=== PATIENT | female | born 1955 | race Caucasian/White ===

== ENCOUNTER 2018-01-12 08:31 | Observation (INO) ==
[2018-01-12 08:46] LABS: Baso % (Auto) 0.8 % (0.0-2.0); Eos # (Auto) 0.2 th/mm3 (0.0-0.4); Eos % (Auto) 3.6 % (0.0-4.0); Hematocrit 45.5 % (35.0-46.0); Hemoglobin 15.5 gm/dL (11.6-15.3); Lymph # (Auto) 1.6 th/mm3 (1.0-4.8); Mean Corpuscular Volume 91.3 fL (80.0-100.0); Mean Platelet Volume 8.8 fL (7.0-11.0); Mono # (Auto) 0.5 th/mm3 (0.0-0.9); Mono % (Auto) 7.8 % (0.0-8.0); Neut # (Auto) 3.8 th/mm3 (1.8-7.7); Neut % (Auto) 61.8 % (16.0-70.0); Platelet Count 262 th/mm3 (150-450); Red Blood Count 4.99 mil/mm3 (4.00-5.30); Red Cell Distribution Width 13.9 % (11.6-17.2); White Blood Count 6.1 th/mm3 (4.0-11.0)
--- NOTE | 2018-01-12 08:50 | ED ---
HPI General Chief complaint: Stroke Alert Stated complaint: Evac/ Stroke allert Time Seen by Provider: 01/12/18 08:50 Source: EMS Mode of arrival: EMS Limitations: no limitations History of Present Illness HPI narrative: 62yo F with PMH of anxiety, stroke was brought in by [facility] as stroke alert. As per [facility], pt had right facial droop and slurred speech less than an hour ago. When they arrived, the facial droop and slurred speech had resolved. However, they felt that she may have some aphasia and difficulty saying her words. They could not tell if it was anxiety or aphasia so called the stroke alert. On arrival, NIH stroke scale is 0. Pt is crying and appears to be very anxious. Related Data Home Medications Medication Instructions Recorded Confirmed alprazolam [Xanax] 0.5 mg PO BID PRN 01/12/18 01/12/18 aspirin [Aspir-81] 81 mg PO DAILY 01/12/18 01/12/18 atorvastatin [Lipitor] 0 mg PO DAILY 01/12/18 01/12/18 escitalopram oxalate [Lexapro] 20 mg PO DAILY 01/12/18 01/12/18 gabapentin 100 mg PO DAILY 01/12/18 01/12/18 liraglutide [Victoza 2-Micheal] 0.6 mg SUBCUT DAILY 01/12/18 01/12/18 lorazepam 1 mg PO BID PRN 01/12/18 01/12/18 meloxicam 15 mg PO DAILY 01/12/18 01/12/18 temazepam [Restoril] 0 mg PO HS 01/12/18 01/12/18 Allergies Allergy/AdvReac Type Severity Reaction Status Date / Time penicillin G Allergy Severe Hives Verified 01/12/18 08:42 MRI PRECAUTION AdvReac Unknown metal Uncoded 01/12/18 08:42 implants Review of Systems ROS: all other systems reviewed are negative [facility] Social History Social History Substance History: No History of Abuse Second Hand Smoke Exposure: No Smoking Status: Never smoker How Often Do You Have a Drink Containing Alcohol: Monthly or less Recent Travel in [facility] within the Last 8 Weeks: No Recent Out of Country Travel within the Last 8 Weeks: No Exam Narrative Exam Narrative: GENERAL: 62yo F in mild distress, crying. SKIN: Focused skin assessment warm/dry. HEAD: Atraumatic. Normocephalic. EYES: Pupils equal and round. No scleral icterus. No injection or drainage. ENT: No nasal bleeding or discharge. Mucous membranes pink and moist. NECK: Trachea midline. No JVD. CARDIOVASCULAR: Regular rate and rhythm. No murmur appreciated. RESPIRATORY: No accessory muscle use. Clear to auscultation. Breath sounds equal bilaterally. GASTROINTESTINAL: Abdomen soft, non-tender, nondistended. MUSCULOSKELETAL: No obvious deformities. No clubbing. No cyanosis. No edema. NEUROLOGICAL: AAOX3. NIH stroke scale 0. No obvious cranial nerve deficits. Motor grossly within normal limits in all extremities. Sensation intact. Normal speech. Course Initial Documented Vital Signs Temperature 98.5 F 01/12/18 08:35 Pulse Rate 96 H 01/12/18 08:35 Respiratory Rate 18 01/12/18 08:35 Blood Pressure 139/75 01/12/18 08:35 Pulse Oximetry 98 01/12/18 08:35 Last Documented Vital Signs Temperature 96.5 F L 01/12/18 12:00 Pulse Rate 86 01/12/18 12:00 Respiratory Rate 18 01/12/18 12:00 Blood Pressure 128/78 01/12/18 12:00 Pulse Oximetry 93 L 01/12/18 12:00 Critical Care Time Critical Care Time: Yes Total Critical Care Time: 40 Attestation: Aggregate critical care time was 40 minutes. Time to perform other separately billable procedures was not included in the critical care time. My time did not include minutes spent treating any other patients simultaneously or on activities that did not directly contribute to the patient's treatment. The services I provided to this patient were to treat and/or prevent clinically significant deterioration that could result in: cardiovascular collapse or . I provided critical care services requiring my management, as noted below: Chart data review, documentation time, medication orders and management, vital sign assessments/reviewing monitor data, ordering and reviewing lab tests, ordering and interpreting/reviewing x-rays and diagnostic studies, care of the patient and discussion of the patient with the admitting physicians. NIH Stroke Scale NIH Stroke Scale Level of Consciousness: 0-Alert Orientation Questions: 0-Answers both correct Responds to Commands: 0-Both tasks correct Gaze Eye Movement: 0-Horizontal movement WNL Visual Pete: 0-No visual field defect Facial Movement: 0-Normal Motor Functions Arm LEFT: 0-No drift Motor Functions Arm RIGHT: 0-No drift Motor Functions Leg LEFT: 0-No drift Motor Functions Leg RIGHT: 0-No drift Limb Ataxia: 0-No ataxia Sensory Loss: 0-No sensory loss Best Language: 0-Normal Articulation: 0-Normal Extinction or Inattention Sensory: 0-Absent Total: 0 Medical Decision Making MDM Narrative Medical decision making narrative: 62yo F was brought in as stroke alert. Pt had right facial droop and slurred speech that had resolved. [facility] was concern about possible aphasia or anxiety as she has some difficult stating some words while crying. Given the questionable aphasia, CTA head and neck ordered in addition to CT brain. Pt is also on blood thinner but cannot tell me what blood thinner. Discussed with Dr. Palma who is neurologist documentation nurse for stroke alert at [place] and he said she is not a TPA candidate at this time and that he will do exam through teleneuro. Labs reviewed, no leukocytosis. H/H 15.5/ 45.5. Troponin negative. Glucose 105. BMP unremarkable. CT brain negative. CTA brain negative. CTA neck showed no carotid stenosis or occlusion. Dr. Palma evaluated the patient through teleneuro and agreed that all symptoms has resolved. Recommend admitting for observation for TIA and ordering echocardiogram and lipid panel. Will place consult for him and admit pt to hospitalist. Recommend aspirin and plavix. The blood thinner pt was on is actually plavix but she has not taken it for 2 weeks. Pt cannot have MRI due to ear implants. Discussed with Dr. No and accepted to his service. Medical Screen Exam Complete: Yes Emergency Medical Condition: Yes Differential Diagnosis Differential Diagnosis: Panic attack vs. TIA Lab Data Result diagrams: 01/12/18 08:35 01/12/18 08:35 Lab Results 01/12/18 01/12/18 01/12/18 Range/Units 05:43 08:35 08:35 CBC w Diff Auto diff final WBC 6.1 (4.0-11.0) th/mm3 RBC 4.99 (4.00-5.30) mil/mm3 Hgb 15.5 H (11.6-15.3) gm/dL Hct 45.5 (35.0-46.0) % MCV 91.3 (80.0-100.0) fL MCH 31.0 (27.0-34.0) pg MCHC 34.0 (32.0-36.0) % RDW 13.9 (11.6-17.2) % Plt Count 262 (150-450) th/mm3 MPV 8.8 (7.0-11.0) fL Neut % (Auto) 61.8 (16.0-70.0) % Lymph % (Auto) 26.0 (9.0-44.0) % Saunders % (Auto) 7.8 (0.0-8.0) % Eos % (Auto) 3.6 (0.0-4.0) % Baso % (Auto) 0.8 (0.0-2.0) % Neut # (Auto) 3.8 (1.8-7.7) th/mm3 Lymph # (Auto) 1.6 (1.0-4.8) th/mm3 Saunders # (Auto) 0.5 (0.0-0.9) th/mm3 Eos # (Auto) 0.2 (0.0-0.4) th/mm3 Baso # (Auto) 0.0 (0.0-0.2) th/mm3 WBC Differential . Differential Comment . PT 10.4 (9.8-11.6) sec INR 1.0 Ratio APTT 26.6 (23.4-31.7) sec Sodium (136-145) meq/L Potassium (3.5-5.1) meq/L Chloride (98-107) meq/L Carbon Dioxide (21.0-32.0) meq/L Anion Gap (5-15) meq/L BUN (7-18) mg/dL Creatinine (0.50-1.00) mg/dL Estimated GFR (>89) mL/min POC Glucose (68-110) mg/dl Random Glucose (74-106) mg/dL Calcium (8.5-10.1) mg/dL Troponin I (0.02-0.05) ng/mL Triglycerides 82 (42-150) mg/dL Cholesterol 113 L (120-200) mg/dL LDL Cholesterol, Calc 49 (0-99) mg/dL HDL Cholesterol 47.8 (40.0-60.0) mg/dL Cholesterol/HDL Ratio 2.36 Ratio 01/12/18 01/12/18 01/12/18 Range/Units 08:35 09:01 11:47 CBC w Diff WBC (4.0-11.0) th/mm3 RBC (4.00-5.30) mil/mm3 Hgb (11.6-15.3) gm/dL Hct (35.0-46.0) % MCV (80.0-100.0) fL MCH (27.0-34.0) pg MCHC (32.0-36.0) % RDW (11.6-17.2) % Plt Count (150-450) th/mm3 MPV (7.0-11.0) fL Neut % (Auto) (16.0-70.0) % Lymph % (Auto) (9.0-44.0) % Saunders % (Auto) (0.0-8.0) % Eos % (Auto) (0.0-4.0) % Baso % (Auto) (0.0-2.0) % Neut # (Auto) (1.8-7.7) th/mm3 Lymph # (Auto) (1.0-4.8) th/mm3 Saunders # (Auto) (0.0-0.9) th/mm3 Eos # (Auto) (0.0-0.4) th/mm3 Baso # (Auto) (0.0-0.2) th/mm3 WBC Differential Differential Comment PT (9.8-11.6) sec INR Ratio APTT (23.4-31.7) sec Sodium 139 (136-145) meq/L Potassium 3.9 (3.5-5.1) meq/L Chloride 103 (98-107) meq/L Carbon Dioxide 27.7 (21.0-32.0) meq/L Anion Gap 8 (5-15) meq/L BUN 18 (7-18) mg/dL Creatinine 0.64 (0.50-1.00) mg/dL Estimated GFR Greater than 89 (>89) mL/min POC Glucose 105 92 (68-110) mg/dl Random Glucose 97 (74-106) mg/dL Calcium 8.8 (8.5-10.1) mg/dL Troponin I Less than 0.02 L (0.02-0.05) ng/mL Triglycerides (42-150) mg/dL Cholesterol (120-200) mg/dL LDL Cholesterol, Calc (0-99) mg/dL HDL Cholesterol (40.0-60.0) mg/dL Cholesterol/HDL Ratio Ratio Imaging Data Radiologist's impression: Head CT 01/12/18 08:35 CONCLUSION: 1. Negative CT Head non contrast. Report was called by [Jeffrey Magana MD ] Head CTA 01/12/18 08:35 CONCLUSION: 1. Negative CT angiogram of the brain. Report was called by [Jeffrey Magana M.D. to Dr. Vargas ] Neck CTA 01/12/18 08:35 CONCLUSION: 1. No evidence of carotid stenosis or occlusion. 2. 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 Dominant left vertebral artery which is widely patent. ECG Data EKG Prior to Arrival: No Attestation: I personally reviewed and interpreted this ECG as follows: Interpretation: NSR 94bpm. LAD. [place] interval 152ms. No signficant ST elevation or depression. Discharge Plan Discharge Disposition Patient Disposition: 30 Still Patient Discharge Details Diagnosis: Brain TIA Physicians Team ED Provider: Radha Vargas Primary Care Provider: Jamil Awad Attending Provider: Cheng Bourne Other Providers: Cortes Forbes Status ED Status: Left Department Discharge Information Discharge Date/Time: 01/12/18 10:24
[2018-01-12 08:53] LABS: Chloride 103 meq/L (98-107); Potassium 3.9 meq/L (3.5-5.1); Sodium 139 meq/L (136-145)
[2018-01-12 08:55] LABS: Calcium 8.8 mg/dL (8.5-10.1)
[2018-01-12 08:56] LABS: Anion Gap 8 meq/L (5-15); Blood Urea Nitrogen 18 mg/dL (7-18); Carbon Dioxide 27.7 meq/L (21.0-32.0); Glucose,Random 97 mg/dL (74-106)
[2018-01-12 08:57] LABS: Activated Partial Thrombo Time 26.6 sec (23.4-31.7); Prothrombin Time 10.4 sec (9.8-11.6)
--- NOTE | 2018-01-12 08:58 | CT ---
EXAM DATE: 01/12/2018 8:46 AM EST AGE/SEX: 62 years / Female INDICATIONS: Stroke alert. Slurred speech and right facial droop this morning. CLINICAL DATA: This is the patient's initial encounter. Patient reports that signs and symptoms have been present for 1 day and indicates a pain score of 0/10. MEDICAL/SURGICAL HISTORY: None. None. RADIATION DOSE: 58.51 CTDI (mGy) COMPARISON: [facility], CTA HEAD, 12/10/2017. . TECHNIQUE: CT of the head without contrast. Using automated exposure control and adjustment of the mA and/or kV according to patient size, radiation dose was kept as low as reasonably achievable to ob tain optimal diagnostic quality images. DICOM format image data is available electronically for revi ew and comparison. FINDINGS: Cerebrum: The ventricles are normal for age. No evidence of midline shift, mass lesion, hemorrhage or acute infarction. No extraaxial fluid collections are seen. Posterior Fossa: The cerebellum and brainstem are intact. The 4th ventricle is midline. The cerebe llopontine angle is unremarkable. Extracranial: The visualized portion of the orbits is intact. Skull: The calvaria is intact. No evidence of skull fracture. CONCLUSION: 1. Negative CT Head non contrast. Report was called by [Jeffrey Magana MD ] Electronically signed by: Perry Magana MD 01/12/2018 8:57 AM EST
[2018-01-12 08:59] LABS: Glomerular Filtration Rate Greater Than 89 mL/min (>89)
--- NOTE | 2018-01-12 09:17 | CT ---
EXAM DATE: 01/12/2018 9:07 AM EST AGE/SEX: 62 years / Female INDICATIONS: Stroke alert. Slurred speech and right facial droop this morning. CLINICAL DATA: This is the patient's initial encounter. Patient reports that signs and symptoms have been present for 1 day and indicates a pain score of 0/10. MEDICAL/SURGICAL HISTORY: None. . Hearing implants. RADIATION DOSE: 43.06 CTDI (mGy) ; Combined studies COMPARISON: [facility], CT HEAD W/O CONTRAST, 01/12/2018. . TECHNIQUE: Volumetric scanning was performed using a multi-row detector CT scanner during bolus infu philipp of 85 ml Visipaque 320 (iodixanol) nonionic water-soluble contrast as a cumulative dose for mul tiple exams. The data was post processed with a variety of visualization algorithms including full volume maximum intensity projection, multi-planar sliding thin slab reformation, curved planar reform ation, and surface rendering techniques. Using automated exposure control and adjustment of the mA a nd/or kV according to patient size, radiation dose was kept as low as reasonably achievable to obtain optimal diagnostic quality images. DICOM format image data is available electronically for review a nd comparison. FINDINGS: The distal internal carotid arteries are widely patent. The examination demonstrates a hypoplastic A1 segment on the right. The anterior and middle cerebral circulation is otherwise within normal limits . The right vertebral artery is diminutive in size. The left vertebral is a sizable vessel and is widel y patent. The basilar is widely patent. The posterior cerebral circulation is widely patent bilateral ly. CONCLUSION: 1. Negative CT angiogram of the brain. Report was called by [Jeffrey Magana M.D. to Dr. Vargas ] Electronically signed by: Perry Magana MD 01/12/2018 9:16 AM EST
--- NOTE | 2018-01-12 09:38 | CT ---
EXAM DATE: 01/12/2018 9:24 AM EST AGE/SEX: 62 years / Female INDICATIONS: Stroke alert. Slurred speech and right facial droop this morning. CLINICAL DATA: This is the patient's initial encounter. Patient reports that signs and symptoms have been present for 1 day and indicates a pain score of 0/10. MEDICAL/SURGICAL HISTORY: None. . Hearing implants. RADIATION DOSE: 43.06 CTDI (mGy) ; Combined studies COMPARISON: [facility], CTA CAROTID ARTERIES, 12/10/2017. [facility], CT CERVICAL SPINE W/O CONTRAST, 3. . TECHNIQUE: Volumetric scanning was performed using a multirow detector CT scanner during bolus infus ion of 85 ml Visipaque 320 (iodixanol) nonionic water-soluble contrast as a cumulative dose for mult iple exams. The data was postprocessed with a variety of visualization algorithms including full-vo lume maximum intensity projection, multiplanar sliding thin-slab reformation, curved-planar reformati on, and surface-rendering techniques. Using automated exposure control and adjustment of the mA and/ or kV according to patient size, radiation dose was kept as low as reasonably achievable to obtain op timal diagnostic quality images. DICOM format image data is available electronically for review and comparison. FINDINGS: Aortic Arch: There is a three-vessel origin of the great vessels from the aorta. No evidence of ost ial narrowing Right Carotid: The common carotid artery is intact. The carotid bulb has a normal configuration wit hout ulceration or narrowing. The internal carotid artery lumen is smooth without stenosis. The ext ernal carotid artery is intact. Left Carotid: The common carotid artery is intact. The carotid bulb has a normal configuration with out ulceration or narrowing. The internal carotid artery lumen is smooth without stenosis. The exte rnal carotid artery is intact. Vertebrals: There is a dominant left vertebral artery. There is a very small caliber right vertebral artery appears to be occluded distally and again reconstitutes near the vertebrobasilar junction. Percent stenosis is calculated using the diameter of the stenotic region over the diameter of the nor mal distal internal carotid artery. CONCLUSION: 1. No evidence of carotid stenosis or occlusion. 2. 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 Dominant left vertebral artery which is widely patent. Electronically signed by: Mane Oliver MD 01/12/2018 9:36 AM EST
--- NOTE | 2018-01-12 09:53 | MB ---
cc: Jamil Palma MD, PhD DATE: 01/12/2018 TELE-NEUROLOGY CONSULTATION HISTORY OF PRESENT ILLNESS: This is a 62-year-old female who came to the ER in [place] as a stroke alert. About an hour prior to admission, she developed sudden onset of right facial droop with slurring of her speech. Upon arrival to the ER, the facial droop had resolved. She was having some difficulty saying words, however, but was very anxious and it was felt that this may have been related to anxiety. The NIH stroke scale was 0. PAST MEDICAL HISTORY: Remarkable for TIA in the past. The patient has had a stroke in the past and did receive TPA in the past. MEDICATIONS: She was on Plavix, but stopped this a couple of weeks ago. NEUROLOGIC EXAMINATION: This was conducted through the tele-neurology network. The patient was clearly visualized and understood. On higher cortical function testing, she is alert. She can tell me her name. She can tell me the month. She can repeat simple phrases well with no sign of aphasia. She comprehends commands normally. There is no visual spatial neglect. CRANIAL NERVES: The pupils are equal. The extraocular movements normal. Facial symmetry is normal. She has no facial droop at the present time. Facial sensation is normal. MOTOR EXAM: She has no drift. She is able to hold both upper extremities up for greater than 10 seconds with absolutely no drift. She is able to hold both lower extremities up as well for greater than 10 seconds. Sensory exam intact. She denies intermittent focal numbness. VITAL SIGNS: Blood pressure 139/75, pulse is 96 and regular. She is in normal sinus rhythm, respiratory rate is 18, temperature 98.5 degrees Fahrenheit. IMAGING STUDIES: CT of the brain is normal. CT angiogram of the brain is normal. LABS: The white count is 6100, hemoglobin 15.5, hematocrit 45.5%, platelet count 262,000. PT 10.4, INR 1, APTT 26.6. Sodium is 139, potassium 3.9, chloride 103, CO2 of 27.7, the BUN is 18, creatinine 0.64, GFR greater than 89, glucose 105, calcium 8.8. IMPRESSION: Probable transient ischemic attack versus anxiety. She has no neurological deficit at the present time and her NIH stroke scale is a 0. For this reason, she is not a candidate for IV TPA. CT angiogram of the brain is normal with no sign of large vessel occlusion and therefore is not a candidate for interventional radiology. PLAN: Would recommend admission for observation for TIA. Would resume her Plavix 75 mg daily along with aspirin 325 mg daily. Evaluate further with carotid ultrasound as well as an echocardiogram and lipid panel. Thank you for asking me to see this patient in consultation. Jamil Palma MD, PhD RENEE/nathalia , 09:27 AM , 09:36 AM
[2018-01-12] MEDS ORDERED: ALPRAZolam 0.5 MG Tablet PO PRN (11:12)
[2018-01-12] MEDS ORDERED: Acetaminophen 325 MG Tablet PO PRN (11:29)
[2018-01-12] MEDS ORDERED: Bisacodyl 10 MG Supp RECTAL PRN (11:29)
--- NOTE | 2018-01-12 11:45 | P.HP ---
History of Present Illness Service: Merged with [facility] Primary Care Physician: Jamil Awad MD Chief Complaint: Episode of slurred speech and aphasia History of Present Illness: 62yo F with PMH of anxiety, stroke was brought in by [facility] as stroke alert. As per [facility], pt had right facial droop and slurred speech less than an hour ago. When they arrived, the facial droop and slurred speech had resolved. However, they felt that she may have some aphasia and difficulty saying her words. They could not tell if it was anxiety or aphasia so called the stroke alert. On arrival, NIH stroke scale is 0. Pt is crying and appears to be very anxious. Neurology was notified and they saw patient via tele service and wanted patient admitted for observation start on plavix and asa 325mg obtain 2d echo carotid . Patient had hx CVA and has been followed by neurology and just completed carotid testing and CT scanning and was d/sarina off plavix 2 weeks ago. Patient with hx dm. Related Data - Diagnosis (1) Brain TIA (2) Diabetes Review of Systems All other systems reviewed negative except as stated in HPI [facility] - History History Provided By: Patient - Medical History Medical History: Medical History (Last Reviewed 01/12/18 @ 11:41 by Cheng Bourne MD) H/O: hysterectomy History of stroke - Surgical History Surgical History: Surgical History (Last Reviewed 01/12/18 @ 11:41 by Cheng Bourne MD) H/O cervical spine surgery Hx of cholecystectomy Hx of gastric bypass - Tobacco History Second Hand Smoke Exposure: No Smoking Status: Never smoker - Alcohol History How Often Do You Have a Drink Containing Alcohol: Monthly or less - Substance Use History Substance History: No History of Abuse - Travel History Recent Travel in the [facility] Within the Last 8 Weeks: No Recent Travel Out of the Country Within the Last 8 Weeks: No - Immunization History Tetanus Immunization: Unsure Medications and Allergies Active Medications: Active Medications Acetaminophen (Tylenol) 650 mg PO Q4H PRN PRN Reason: Temp > 100.4 Al Hydroxide/Mg Hydroxide (Milk Of Magnesia Liq) 30 ml PO Q12H PRN PRN Reason: Mild Constipation Alprazolam (Xanax) 0.5 mg PO BID PRN PRN Reason: Anxiety Aspirin (Aspirin) 325 mg PO DAILY DEEPA Atorvastatin Calcium (Lipitor) 20 mg PO DAILY DEEPA Bisacodyl (Dulcolax Supp) 10 mg RECTAL DAILY PRN PRN Reason: SEVERE CONSITIPATION Clopidogrel Bisulfate (Plavix) 75 mg PO DAILY [facility] Escitalopram Oxalate (Lexapro) 20 mg PO DAILY [facility] Gabapentin (Neurontin) 100 mg PO DAILY [facility] Lactulose (Lactulose Liq) 30 ml PO DAILY PRN PRN Reason: SEVERE CONSITIPATION Non-Formulary Medication (Liraglutide [Victoza 2-Micheal]) 0.6 mg SQ DAILY [facility] Non-Formulary Medication (Temazepam [Restoril]) 30 mg PO HS [facility] Ondansetron HCl (Zofran Inj) 4 mg IV.PUSH Q6H PRN PRN Reason: NAUSEA OR VOMITING Senna/Docusate Sodium (Ana-Colace) 1 tab PO BID [facility] Sennosides (Senokot) 17.2 mg PO Q12H PRN PRN Reason: Moderate Constipation Sodium Chloride (Ns Flush) 2 ml IV.FLUSH PRN PRN PRN Reason: FLUSH AFTER USING IV ACCESS Allergies Allergy/AdvReac Type Severity Reaction Status Date / Time penicillin G Allergy Severe Hives Verified 01/12/18 08:42 MRI PRECAUTION AdvReac Unknown metal Uncoded 01/12/18 08:42 implants Home Medications Medication Instructions Recorded Confirmed Type alprazolam [Xanax] 0.5 mg PO BID PRN 01/12/18 01/12/18 History aspirin [Aspir-81] 81 mg PO DAILY 01/12/18 01/12/18 History atorvastatin [Lipitor] 0 mg PO DAILY 01/12/18 01/12/18 History escitalopram oxalate [Lexapro] 20 mg PO DAILY 01/12/18 01/12/18 History gabapentin 100 mg PO DAILY 01/12/18 01/12/18 History liraglutide [Victoza 2-Micheal] 0.6 mg SUBCUT DAILY 01/12/18 01/12/18 History lorazepam 1 mg PO BID PRN 01/12/18 01/12/18 History meloxicam 15 mg PO DAILY 01/12/18 01/12/18 History temazepam [Restoril] 0 mg PO HS 01/12/18 01/12/18 History Exam Vital signs: Vital Signs 01/12/18 08:35 01/12/18 09:24 01/12/18 09:57 Temperature 98.5 F Pulse Rate 96 H 95 H 87 Respiratory Rate 18 16 Blood Pressure 139/75 132/73 Pulse Oximetry 98 98 98 Intake & Output 01/11/18 01/12/18 01/12/18 18:59 06:59 18:59 Weight 104.8 kg Other: Weight On Admission 104.8 kg Narrative: GENERAL: SKIN: Warm and dry. HEAD: Atraumatic. Normocephalic. EYES: Pupils equal and round. No scleral icterus. No injection or drainage. ENT: No nasal bleeding or discharge. Mucous membranes pink and moist. NECK: Trachea midline. No JVD. CARDIOVASCULAR: Regular rate and rhythm. RESPIRATORY: No accessory muscle use. Clear to auscultation. Breath sounds equal bilaterally. GASTROINTESTINAL: Abdomen soft, non-tender, nondistended. Hepatic and splenic margins not palpable. MUSCULOSKELETAL: Extremities without clubbing, cyanosis, or edema. No obvious deformities. NEUROLOGICAL: Awake and alert. No obvious cranial nerve deficits. Motor grossly within normal limits. Five out of 5 muscle strength in the arms and legs. Normal speech. PSYCHIATRIC: Appropriate mood and affect; insight and judgment normal. Results - Labs CBC & Chem 7: 01/12/18 08:35 01/12/18 08:35 Labs: Laboratory Results - last 24 hr 01/12/18 01/12/18 01/12/18 08:35 08:35 08:35 CBC w Diff Auto diff final WBC 6.1 RBC 4.99 Hgb 15.5 H Hct 45.5 MCV 91.3 MCH 31.0 MCHC 34.0 RDW 13.9 Plt Count 262 MPV 8.8 Neut % (Auto) 61.8 Lymph % (Auto) 26.0 [place] % (Auto) 7.8 Eos % (Auto) 3.6 Baso % (Auto) 0.8 Neut # (Auto) 3.8 Lymph # (Auto) 1.6 [place] # (Auto) 0.5 Eos # (Auto) 0.2 Baso # (Auto) 0.0 WBC Differential . Differential Comment . PT 10.4 INR 1.0 APTT 26.6 Sodium 139 Potassium 3.9 Chloride 103 Carbon Dioxide 27.7 Anion Gap 8 BUN 18 Creatinine 0.64 Estimated GFR Greater than 89 POC Glucose Random Glucose 97 Calcium 8.8 Troponin I Less than 0.02 L 01/12/18 09:01 CBC w Diff WBC RBC Hgb Hct MCV MCH MCHC RDW Plt Count MPV Neut % (Auto) Lymph % (Auto) [place] % (Auto) Eos % (Auto) Baso % (Auto) Neut # (Auto) Lymph # (Auto) [place] # (Auto) Eos # (Auto) Baso # (Auto) WBC Differential Differential Comment PT INR APTT Sodium Potassium Chloride Carbon Dioxide Anion Gap BUN Creatinine Estimated GFR POC Glucose 105 Random Glucose Calcium Troponin I - Imaging Impressions Head CT 01/12/18 08:35 CONCLUSION: 1. Negative CT Head non contrast. Report was called by [Jeffrey Magana MD ] Head CTA 01/12/18 08:35 CONCLUSION: 1. Negative CT angiogram of the brain. Report was called by [Jeffrey Magana M.D. to Dr. Vargas ] Neck CTA 01/12/18 08:35 CONCLUSION: 1. No evidence of carotid stenosis or occlusion. 2. 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 Dominant left vertebral artery which is widely patent. Caprini VTE Risk Assessment Caprini VTE Risk Assessment: Moderate/High Risk (score >= 2) Caprini Risk Assessment Model: Point Value = 1 Point Value = 2 Point Value = 3 Point Value = 5 Age 41-60 Minor surgery BMI > 25 kg/m2 Swollen legs Varicose veins or History of unexplained or recurrent spontaneous Oral contraceptives or hormone replacement Sepsis (< 1 month) Serious lung disease, including pneumonia (< 1 month) Abnormal pulmonary function Acute myocardial infarction Congestive heart failure (< 1 month) History of inflammatory bowel disease Medical patient at bed rest Age 61-74 Arthroscopic surgery Major open surgery (> 45 min) Laparoscopic surgery (> 45 min) Malignancy Confined to bed (> 72 hours) Immobilizing plaster cast Central venous access Age >= 75 History of VTE Family history of VTE Factor V Leiden Prothrombin [id number] Lupus anticoagulant Anticardiolipin antibodies Elevated serum homocysteine Heparin-induced thrombocytopenia Other congenital or acquired thrombophilia Stroke (< 1 month) Elective arthroplasty Hip, pelvis, or leg fracture Acute spinal cord injury (< 1 month) Prophylaxis Regimen: Total Risk Factor Score Risk Level Prophylaxis Regimen 0-1 Low Early ambulation 2 Moderate Order ONE of the following: *Sequential Compression Device (SCD) *Heparin 5000 units SQ BID 3-4 Higher Order ONE of the following medications: *Heparin 5000 units SQ TID *Enoxaparin/Lovenox 40 mg SQ daily (WT < 150 kg, CrCl > 30 mL/min) *Enoxaparin/Lovenox 30 mg SQ daily (WT < 150 kg, CrCl > 10-29 mL/min) *Enoxaparin/Lovenox 30 mg SQ BID (WT < 150 kg, CrCl > 30 mL/min) AND/OR *Sequential Compression Device (SCD) 5 or more Highest Order ONE of the following medications: *Heparin 5000 units SQ TID (Preferred with Epidurals) *Enoxaparin/Lovenox 40 mg SQ daily (WT < 150 kg, CrCl > 30 mL/min) *Enoxaparin/Lovenox 30 mg SQ daily (WT < 150 kg, CrCl > 10-29 mL/min) *Enoxaparin/Lovenox 30 mg SQ BID (WT < 150 kg, CrCl > 30 mL/min) AND *Sequential Compression Device (SCD) Assessment and Plan - Assessment (1) Brain TIA Code(s): G45.9 - Transient cerebral ischemic attack, unspecified Status: Acute Plan: admit observation 2d echo will review work up patient had as out patient restart plavix and asa (2) Diabetes Code(s): E11.9 - Type 2 diabetes mellitus without complications Status: Acute Plan: continue home medications - Plan Further plan as case develops Code Status: Full Discussed Condition With: Patient
[2018-01-12] MEDS ORDERED: Dextrose 50% in Water 50 ML Vial IV.PUSH PRN (11:46)
[2018-01-12] MEDS: Insulin NovoLOG Aspart Correctional Sugar Inj SQ SCH ×2 (12:36→17:22)
[2018-01-12 14:00] LABS: Chol/HDL Ratio 2.36 Ratio; HDL Cholesterol 47.8 mg/dL (40.0-60.0)
--- NOTE | 2018-01-12 15:37 | ECHRPT ---
Indication: CVA/TIA CONCLUSIONS The left ventricular systolic function is normal with an estimated ejection fraction in the range of 60-65%. Normal left ventricular size. Wall thickness is normal. No regional wall motion abnormalities are present. Trileaflet aortic valve. Minimal aortic valve sclerosis is present. There is trace tricuspid valve regurgitation. The estimated pulmonary arterial pressure is 25 mmHg. BP: / HR: Rhythm: Sinus MEASUREMENTS (Male / Female) Normal Values Technical Quality:Fair 2D ECHO LV Diastolic Diameter PLAX 3.6 cm 4.2 - 5.9 / 3.9 - 5.3 cm LV Systolic Diameter PLAX 2.5 cm IVS Diastolic Thickness 1.0 cm 0.6 - 1.0 / 0.6 - 0.9 cm LVPW Diastolic Thickness 1.0 cm 0.6 - 1.0 / 0.6 - 0.9 cm LV Relative Wall Thickness 0.5 LVOT Diameter 1.8 cm LA Systolic Diameter LX 3.3 cm 3.0 - 4.0 / 2.7 - 3.8 cm LV Ejection Fraction MOD 4C 60.8 % LV Ejection Fraction 4C AL 62.5 % M-MODE Aortic Root Diameter MM 2.1 cm LA Systolic Diameter MM 3.0 cm LA Ao Ratio MM 1.4 AV Cusp Separation MM 1.9 cm DOPPLER AV Peak Velocity 167.0 cm/s AV Peak Gradient 11.2 mmHg LVOT Peak Velocity 95.3 cm/s LVOT Peak Gradient 3.6 mmHg AV Area Cont Eq pk 1.5 cm MV Area PHT 3.7 cm Mitral E Point Velocity 63.2 cm/s Mitral A Point Velocity 83.9 cm/s Mitral E to A Ratio 0.8 LV E' Lateral Velocity 6.6 cm/s Mitral E to LV E' Lateral Ratio 9.5 LV E' Septal Velocity 6.7 cm/s Mitral E to LV E' Septal Ratio 9.4 TR Peak Velocity 198.0 cm/s TR Peak Gradient 15.7 mmHg Right Atrial Pressure 10.0 mmHg Pulmonary Artery Systolic Pressu 25.7 mmHg Right Ventricular Systolic Press 25.7 mmHg PV Peak Velocity 86.9 cm/s PV Peak Gradient 3.0 mmHg FINDINGS LEFT VENTRICLE The left ventricular systolic function is normal with an estimated ejection fraction in the range of 60-65%. Normal left ventricular size. Wall thickness is normal. No regional wall motion abnormalities are present. RIGHT VENTRICLE Normal right ventricular size and systolic function. LEFT ATRIUM The left atrial size is normal. RIGHT ATRIUM The right atrial size is normal. ATRIAL SEPTUM Normal atrial septal thickness without atrial level shunting by limited color doppler interrogation. AORTA The aortic root and proximal ascending aorta are normal in size on limited imaging. MITRAL VALVE Structurally normal mitral valve. No mitral valve stenosis or regurgitation. AORTIC VALVE Trileaflet aortic valve. Minimal aortic valve sclerosis is present. TRICUSPID VALVE There is trace tricuspid valve regurgitation. The estimated pulmonary arterial pressure is 25 mmHg. PULMONARY VALVE Trivial pulmonary valve regurgitation. VESSELS The inferior vena cava is normal in size. PERICARDIUM No pericardial effusion. Woody Zhong MD (Electronically Signed) Final Date:12 January 2018 15:37
--- NOTE | 2018-01-12 18:14 | ECG ---
Date Performed: 01/12/2018 Time Performed: 09:09:36 PTAGE: 62 years EKG: Sinus rhythm POSSIBLE LEFT ATRIAL ENLARGEMENT NONSPECIFIC T-WAVE ABNORMALITY BORDERLINE ECG NO PREVIOUS TRACING DOCTOR: Elizabeth Leigh Interpretating Date/Time 01/12/2018 18:10:16
[2018-01-12] MEDS: Senna/Docusate Sodium 8.6/50 MG Tablet PO SCH (20:38)
[2018-01-12] MEDS ORDERED: Temazepam 15 MG Capsule PO SCH (21:00)
[2018-01-13] MEDS: Insulin NovoLOG Aspart Correctional Sugar Inj SQ SCH ×2 (01:27→07:03)
[2018-01-13] MEDS: Senna/Docusate Sodium 8.6/50 MG Tablet PO SCH (08:30)
[2018-01-13] MEDS ORDERED: Gabapentin 100 MG Capsule PO SCH (09:00)
[2018-01-13] MEDS ORDERED: LIRAGLUTIDE 0.6 MG SQ SCH (09:00)
[2018-01-13] MEDS ORDERED: Aspirin 325 MG Tablet PO SCH (09:00)
--- NOTE | 2018-01-13 09:24 | MB ---
cc: Jamil Palma MD, PhD DATE: 01/13/2018 HISTORY OF PRESENT ILLNESS: This is a 62-year-old female who I evaluated yesterday in the ER via teleneurology as a stroke alert. Her symptoms had resolved. She had developed slurred speech and a right facial droop. This completely resolved. NIH stroke scale was 0, therefore not a TPA candidate and not an interventional candidate. She is doing well this morning with no neurological symptoms. Denies any recurrent slurred speech. Denies any recurrent weakness or facial droop. Her evaluation in the emergency room included CT brain, which was negative. She had a CT angiogram of the brain, which was also normal. She had CTA of the neck showing no significant carotid artery stenosis. She has small caliber right vertebral artery, which was occluded distally and reconstituted near the vertebrobasilar junction. Dominant left vertebral artery was seen. The patient states that she had a history of a stroke about a year ago, was evaluated in the past by Dr. Segura, including transesophageal echo,which was normal. She had a monitoring and evaluation advisor on for a month, which was negative for atrial fibrillation. She was on Plavix and aspirin therapy. She states about 2 weeks ago, she stopped the Plavix and was continuing on aspirin. NEUROLOGICAL EXAMINATION: VITAL SIGNS: Blood pressure today is 142/66, pulse 77 and regular, respirations 18, temperature 94.5 degrees. HIGHER CORTICAL FUNCTION: She is alert, oriented x 3. Her speech is within normal limits today. No dysarthria. Cranial nerves are intact. Motor exam is normal with no focal deficit. Reflexes symmetric. DIAGNOSTIC DATA: The white count is 6100, hemoglobin 15.5, hematocrit 45%, platelet count 262,000. PT 10.4, INR 1, aPTT 26.6. Sodium 139, potassium 3.9, chloride 103, CO2 of 28, BUN is 18, creatinine 0.64. GFR is greater than 89, glucose 97. Troponin less than 0.02. EKG normal sinus rhythm. She did have an echocardiogram done today. EF is 60%-65%, normal left ventricular size and function, trace tricuspid valve regurgitation, minimal aortic valve sclerosis is present with a trileaflet aortic valve. Atrial septum is normal. The aortic root is normal. Mitral valve is structurally normal with no stenosis. Aortic valve minimal sclerosis, no stenosis. Pulmonary valve, trivial valve regurgitation. Tricuspid valve, trace valve regurgitation. IMPRESSION: Transient ischemic attack, now completely resolved as noted above. She is not a TPA candidate due to resolution of symptoms. Would recommend continuing both Plavix 75 mg daily as well as aspirin 325 mg daily, but also continue statin therapy. The patient is stable at this time for discharge if okay with the primary service, continuing Plavix and aspirin. She will follow up with Dr. Del Rosario, who is her neurologist presently. Thank you for asking me to see this patient in consult. Jamil Palma MD, PhD RENEE/ingrid , 08:56 AM , 09:04 AM
[2018-01-13 10:13] VITALS: BP 117/77; PULSE 76; RESP 20; TEMP 96.5; O2SAT 95
--- NOTE | 2018-01-13 11:44 | P.DS ---
Date of admission: 01/12/18 09:46 Primary care physician: Jamil Awad MD Attending physician on discharge: Cheng Bourne Anticipated date of discharge: 01/13/18 Brief History from admission: 62yo F with PMH of anxiety, stroke was brought in by [facility] as stroke alert. As per [facility], pt had right facial droop and slurred speech less than an hour ago. When they arrived, the facial droop and slurred speech had resolved. However, they felt that she may have some aphasia and difficulty saying her words. They could not tell if it was anxiety or aphasia so called the stroke alert. On arrival, NIH stroke scale is 0. Pt is crying and appears to be very anxious. Neurology was notified and they saw patient via tele service and wanted patient admitted for observation start on plavix and asa 325mg obtain 2d echo carotid . Patient had hx CVA and has been followed by neurology and just completed carotid testing and CT scanning and was d/sarina off plavix 2 weeks ago. Patient with hx dm. Related Data Patient update on day of discharge: patient doing well to continue plavix 75 and asa 325 which she already has at home and follow up with neurology thursday DS: Diagnosis - Discharge Diagnosis (1) Brain TIA Status: Acute (2) Diabetes Status: Acute DS: Summary Hospital Course: Patient admitted with TIA symptom resolved before arriving in ER monitored overnight 2d echo unremarkable and restarted on Plavix 75 and ASA 325 and to continue home Meds. Patient already has at home plavix and asa and has follow up with neurology this Thursday - Time Spent with Patient Total time spent providing and/or coordinating discharge services: Greater than 30 minutes - Quality: Stroke Last date observed well: 01/12/18 Last time observed well: 07:00 - Quality: VTE Deep Vein Thrombosis/Pulmonary Embolism Present on Admission: No Exam Vital signs: Vital Signs 01/12/18 12:00 01/12/18 16:00 01/12/18 19:30 Temperature 96.5 F L 97.7 F Pulse Rate 86 90 Respiratory Rate 18 16 Blood Pressure 128/78 123/76 Pulse Oximetry 93 L 94 L 96 01/12/18 20:00 01/13/18 00:00 01/13/18 04:00 Temperature 96.3 F L 98.5 F 94.5 F L Pulse Rate 74 70 77 Respiratory Rate 18 18 Blood Pressure 113/71 180/66 H 142/66 H Pulse Oximetry 96 96 96 01/13/18 08:00 Temperature 96.5 F L Pulse Rate 76 Respiratory Rate 20 Blood Pressure 117/77 Pulse Oximetry 95 Intake & Output 01/12/18 01/13/18 01/13/18 18:59 06:59 18:59 Intake Total 600 / 600 90 / 90 Output Total 400 / 400 Balance 600 / 600 -310 / -310 Weight 104.8 kg 105.8 kg Intake: Oral 600 / 600 90 / 90 Output: Urine 400 / 400 Other: # Voids 4 # Bowel Movements 0 Weight On Admission 104.8 kg Narrative: GENERAL: SKIN: Warm and dry. HEAD: Normocephalic. EYES: No scleral icterus. No injection or drainage. NECK: Supple, trachea midline. No JVD or lymphadenopathy. CARDIOVASCULAR: Regular rate and rhythm without murmurs, gallops, or rubs. RESPIRATORY: Breath sounds equal bilaterally. No accessory muscle use. GASTROINTESTINAL: Abdomen soft, non-tender, nondistended. MUSCULOSKELETAL: No cyanosis, or edema. BACK: Nontender without obvious deformity. No CVA tenderness.neuro no focal findings Results Procedures completed during hospitalization: 2d echo cta brain,ct brain had implant so unable to perform MRI Labs on day of discharge: Labs from last 24 hours 01/13/18 01/12/18 01/12/18 06:40 21:22 17:20 POC Glucose 80 88 106 Triglycerides Cholesterol LDL Cholesterol, Calc HDL Cholesterol Cholesterol/HDL Ratio 01/12/18 01/12/18 11:47 05:43 POC Glucose 92 Triglycerides 82 Cholesterol 113 L LDL Cholesterol, Calc 49 HDL Cholesterol 47.8 Cholesterol/HDL Ratio 2.36 - Impressions ITS Impressions Head CT 01/12/18 08:35 CONCLUSION: 1. Negative CT Head non contrast. Report was called by [Jeffrey Magana MD ] Head CTA 01/12/18 08:35 CONCLUSION: 1. Negative CT angiogram of the brain. Report was called by [Jeffrey Magana M.D. to Dr. Vargas ] Neck CTA 01/12/18 08:35 CONCLUSION: 1. No evidence of carotid stenosis or occlusion. 2. 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 Dominant left vertebral artery which is widely patent. Discharge Plan - Discharge Disposition Patient Disposition: 01 Discharge Home - Discharge Condition Condition: Good - Discharge Order Discharge Orders: Discharge Order (Routine); Ordered 01/13/18 Ordered By: Cheng Bourne - Discharge Details Anticipated Discharge Date: 01/13/18 - Physicians Team Primary Care Provider: Jamil Awad Attending Provider: Cheng Bourne Other Providers: Cortes Forbes MD
== END 2018-01-13 13:37 | disposition home or self-care (01) ==
LOC: PHEDA 08:31 → PHED 08:31 → PH3 10:22
PROVIDERS: ADMIT Internal Medicine; ATTEND Internal Medicine
DX: Z79.82 Long term (current) use of aspirin; I63.9 Cerebral infarction, unspecified; Z90.710 Acquired absence of both cervix and uterus; Z98.84 Bariatric surgery status; R94.31 Abnormal electrocardiogram [ECG] [EKG]; Z79.02 Long term (current) use of antithrombotics/antiplatelets; Z90.49 Acquired absence of other specified parts of digestive tract; F41.9 Anxiety disorder, unspecified; E11.9 Type 2 diabetes mellitus without complications; Z79.84 Long term (current) use of oral hypoglycemic drugs